=== PATIENT | female | born 1970 ===

== ENCOUNTER 2017-11-18 09:35 | Emergency (ER) | payer BC, MEDICAID, OTHER ==
[2017-11-18 09:35] VITALS: BMI 32.5
[2017-11-18 10:03] VITALS: BP 128/76; PULSE 75; RESP 18; TEMP 98; O2SAT 98
[2017-11-18] MEDS ORDERED: Silver Nitrate Topical - Stick TOP ONE (10:13)
[2017-11-18] MEDS ORDERED: Silver Nitrate Topical - Stick ONE (10:22)
--- NOTE | 2017-11-18 11:11 | ED PDOC ---
HPI: General Adult Time Seen by Provider: 11/18/17 09:49 Chief Complaint (Nursing): Abnormal Skin Integrity Chief Complaint (Provider): Lip growth History Per: Patient History/Exam Limitations: no limitations Onset/Duration Of Symptoms: Days (x1 month) Current Symptoms Are (Timing): Still Present Additional Complaint(s): Emi Rodriguez is a 47 year old female, with no significant past medical history, who presents to the emergency department complaining of a lip problem onset for x1 month. Patient reports she developed a growth in lower lip after she kept biting on it. Patient states it will sometimes bleed. She went to PMD and was instructed to follow up with oral surgeon but never did because the next appointment was in x2 months and couldn't wait. Patient came to the ED hoping she would get a faster appointment or same day surgery. She is not taking any blood thinners. She denies any severe bleeding or other medical complaints. PMD: Daniel Lara Past Medical History Reviewed: Historical Data, Nursing Documentation, Vital Signs Vital Signs: Last Vital Signs Temp 98 F 11/18/17 09:55 Pulse 75 11/18/17 09:55 Resp 18 11/18/17 09:55 BP 128/76 11/18/17 09:55 Pulse Ox 98 11/18/17 11:23 - Medical History PMH: No Chronic Diseases - Surgical History Surgical History: - Family History Family History: States: Unknown Family Hx - Social History Current smoker - smoking cessation education provided: No Alcohol: None Drugs: Denies - Home Medications Home Medications: Ambulatory Orders Medication Instructions Recorded Cyclobenzaprine HCl [Flexeril] 10 mg PO Q8 PRN #12 tab 04/27/15 Ibuprofen [Motrin] 600 mg PO Q8 PRN #20 tab 04/27/15 Naproxen Sodium [Aleve] 2 tab-cap PO DAILY PRN 04/27/15 oxyCODONE/Acetaminophen [Percocet 1 ea PO Q6 PRN #10 tab 04/27/15 5/325 mg Tab] oxyCODONE/Acetaminophen [Percocet 1 ea PO Q6 PRN #12 tab 07/19/16 5/325 mg Tab] - Allergies Allergies/Adverse Reactions: Allergies Allergy/AdvReac Type Severity Reaction Status Date / Time No Known Allergies Allergy Verified 09/11/15 09:54 Review of Systems ROS Statement: Except As Marked, All Systems Reviewed And Found Negative ENT: Positive for: Other (growth in lower lip. No severe bleeding) Physical Exam - Reviewed Nursing Documentation Reviewed: Yes Vital Signs Reviewed: Yes - Physical Exam Appears: Positive for: Well, Non-toxic, No Acute Distress Head Exam: Positive for: ATRAUMATIC, NORMAL INSPECTION, NORMOCEPHALIC Skin: Positive for: Normal Color, Warm, Dry Eye Exam: Positive for: Normal appearance ENT: Positive for: Other (round mass on lower lip on left side. pink in color. Nontender, soft with scant amount of blood oozing from inner side of mass. No swelling or redness) Neck: Positive for: Painless ROM, Supple Cardiovascular/Chest: Positive for: Regular Rate, Rhythm. Negative for: Murmur Respiratory: Positive for: Normal Breath Sounds. Negative for: Respiratory Distress Extremity: Positive for: Normal ROM. Negative for: Deformity, Swelling Neurologic/Psych: Positive for: Alert, Oriented - ECG O2 Sat by Pulse Oximetry: 98 (RA) Pulse Ox Interpretation: Normal Medical Decision Making Medical Decision Making: Initial Impression: Chronic mass/growth of the lower lip, no active bleeding. Initial Plan: --Reevaluation Will use silver nitrate, chemical cauterization of the small area that is oozing according to pt. No indication for further observation, diagnosis, treatment or consultation in the ED. 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 11:05 -Minimal bleeding stopped and patient at this time has no indication of intervention. Patient agrees no interventions needed. Scribe Attestation: Documented by Erwin Kowalski, acting as a scribe for Cassandra Rogers MD Provider Scribe Attestation: All medical record entries made by the Scribe were at my direction and personally dictated by me. I have reviewed the chart and agree that the record accurately reflects my personal performance of the history, physical exam, medical decision making, and the department course for this patient. I have also personally directed, reviewed, and agree with the discharge instructions and disposition. Disposition - Clinical Impression Clinical Impression: Lip lesion - Patient ED Disposition Is Patient to be Admitted: No Doctor Will See Patient In The: Office Counseled Patient/Family Regarding: Studies Performed, Diagnosis, Need For Followup - Disposition Referrals: Raoul Sims MD [Staff Provider] - Marian Charles MD [Medical Doctor] - Disposition Time: 11:20 Condition: GOOD Additional Instructions: Follow up with your PCP in 2-3 days. Call service for follow up appointment. Return for bleeding. Forms: [id number] (Setswana)
== END 2017-11-18 11:22 | disposition home or self-care (01) ==
LOC: H.ER 09:35
DX: K13.0 Diseases of lips (principal)